=== PATIENT | male | born 1975 ===

== ENCOUNTER 2025-01-15 11:23 | Inpatient (IN) | payer OTHER ==
[~2025-01-15] VITALS: Ht 175.3 cm; Wt 81.1 kg
[2025-01-15 13:17] VITALS: BP 137/83
[2025-01-15] MEDS ORDERED: LITH300C PO (13:42)
[2025-01-15] MEDS ORDERED: TRAZ50 PO (13:50)
[2025-01-15] MEDS ORDERED: Polyethylene Glycol 3350 17 gm PO PRN (14:30)
[2025-01-15] MEDS ORDERED: Ondansetron 4 MG SoluTab MM PRN (14:30)
[2025-01-15] MEDS ORDERED: Aluminum Hydroxide 320MG/5ML 473 ML PO PRN (14:35)
[2025-01-15] MEDS ORDERED: LITH300ER PO (15:43)
[2025-01-15 15:44] VITALS: BP 137/83
--- NOTE | 2025-01-15 16:16 | NUR ---
ADMISSION SUMMARY PT ARRIVED TO [facility] AT 1313 VIA [facility] COMING FROM [facility]. PT CHANGED TO GREEN SCRUBS, SKIN CHECK COMPLETED BY THIS RN AND ARTEM, NO SKIN ISSUES IDENTIFIED. PT IS VERY NERVOUS, ANXIOUS AND CONCERED ABOUT HIS STAY HERE. MANY QUESTION ABOUT HOW THINGS WORK, WHAT HAPPENS WHEN, CONCERNED ABOUT HIS ROOMMATE. PT JUST STARED AT HIS ROOMMATE WHO WAS SLEEPING AND PT WAS SHOCKED HE HAS A ROOMMATE. PT DESCRIBES HX OF BIPOLAR BEING DX WHEN HE WAS 18 YEARS. HE HAS HAD TWO INPATIENT ADMITS WHEN HE WAS YOUNGER WHILE LIVING IN [place]. HE STS HE HAS BEEN ON LITHIUM FOR MANY YEARS. HE TYPICALLY DOES WELL MANAGING HIS BIPOLAR. HE HAS JUST HAD WAY TO MUCH STRESS LATELY. HE IS OF 26 YEARS, WORKS AT [employer], HAS 3 DAUGTHERS AND 1 SON, HAS A BACHEL[employer] DEGREE IN SCIENCE. VERY CONCERNED ABOUT HOW HE CAN MANAGE HIS VRBO WITHOUT HIS PHONE AND NEEDS IT ALLOW RENTERS INTO THE HOME. WILL HAVE THIS ADDRESSED WITH THE MEMBER OF THE LEGISLATIVE ASSEMBLY TOMORROW. PT WAS ORIENTED TO UNIT AND HIS ROOM AND UNDERSTANDS Q15 MIN VISUAL SAFETY CHECKS
[2025-01-15 20:55] VITALS: BP 154/99
--- NOTE | 2025-01-16 04:00 | NUR ---
Patient is alert and oriented times four. He participates in activities of the milieu and is cooperative with staff and his peers. He does seem very anxious, and appeared to be somewhat subdued during our evening conversation. He did not endorse SI,HI or AVTH during assessment. Vistaril was given at 0240 for increasing anxiety and inability to go back to sleep. Will continue close monitoring every 15 minutes for safety and comfort
[2025-01-16 07:59] LABS: CHOL/HDL RATIO 2.3; Cholesterol 142 mg/dL (50-200); HDL Cholesterol 61 mg/dL (>39); LDL/HDL RATIO 1.0; Low Density Lipoprotein Chol 60 mg/dL (0-110); Triglycerides 104 mg/dL (30-160); Very Low Density Lipoprot Chol 20 mg/dL (6-32)
[2025-01-16 08:02] VITALS: BP 127/89
[2025-01-16] MEDS ORDERED: Multivitamins 1 Tab PO SCH (09:00)
--- NOTE | 2025-01-16 15:47 | NUR ---
SHIFT ASSESSMENT: PT DENIED SI, HI, AVH AND PHYSICAL PAIN. HE ENDORSED ANXIETY..."A LITTLE BIT." HE DESCRIBED HIS MOOD "A BIT MORE OPTIMISTIC NOW THAT I'VE TALKED TO THE DOCTOR." HIS GOALS FOR THIS ADMISSION," TO BE ABLE TO COME AND KNOW JERRY I'M SAFE AND BE CALMER." PT IS PRESENTLY IN HIS ROOM.
[2025-01-16 19:30] VITALS: BP 137/79
--- NOTE | 2025-01-17 03:46 | NUR ---
SHIFT SUMMARY Patient is alert and oriented times four. Pleasant and cooperative with his peers and the staff. Gave Patient safety plan and encouraged him to fill it out, and think about his coping skills. Spent time consructively listening to the patient discuss his anxiety and the effect it is having on his life. Patient seemed satisfied with the conversations, asked for hes evening medications with included trazodone and clozaril, and went to bed. Will continue to monitor every 15 minutes for comfort and safety. up until the time of this note, the patient has slept approximately 5.5 hours.
[2025-01-17 07:04] VITALS: BP 128/96
--- NOTE | 2025-01-17 11:14 | NUR ---
MID SHIFT SUMMARY WILL CONTINUE PT CARE UNTIL 1200. PT HAS BEEN UP SINCE THE TIME BKFT CAME. THIS MORNING HE DENIED SI/HI/AVH. HE IS FEELING MORE UPBEAT TODAY AND LOOKING FORWARD TO WORKING ON HIS D/C PLAN. HE HAS PARTICIPATED IN BOTH GROUPS SO FAR TODAY. DID NOT TAKE HIS AM MULTIVITAMIN, HE HAS BEEN RECEIVING Q15 MIN VISUAL SAFETY CHECKS.
--- NOTE | 2025-01-17 15:55 | NUR ---
SHIFT ASSESSMENT: PT DENIED SI, HI, AVH, ANXIETY AND PAIN. HE DESCRIBED HIS MOOD , "I'M ENCOURAGED...IT WAS A GOOD MEETING, HIS AFFECT WAS EUTHYMIC. PT IS PRESENTLY IN THE DAY ROOM WITH PEERS. HIS GOALS TODAY ARE, "TO DRINK MORE WATER AND GET A GOOD NIGHTS SLEEP. PT IS COOPERATIVE AND PLEASANT.
[2025-01-17 19:35] VITALS: BP 164/86
[2025-01-17 20:46] VITALS: BP 139/92
--- NOTE | 2025-01-18 04:06 | NUR ---
SHIFT SUMMARY PT PRESENT IN HALLWAY AT START OF SHIFT. HE REPORTS HIS MOOD "STRESSED". HE DISCUSSED BEING STRESSED DUE TO CONCERN REGARDING FINANCES AND HIS BUSINESS. HE ALSO STATES HE FEELS STRESSED WITH THE AMOUNT OF NOISES IN THE UNIT AND IS WORRIED THAT HIS MEDICATIONS AREN'T GOING TO WORK. HE WAS PLEASANT AND COOPERATIVE WITH CARE. HE DECLINED TO HAVE EVENING SNACK AND DID NOT ATTEND WRAP UP GROUP. HE STAYED IN HIS ROOM AND JOURNALED. HE WAS COMPLIANT WITH HIS MEDICATIONS AND WENT TO BED. HE PRESENTED TO THE NURSES STATION AT APPROXIMATELY 2300. REPORTED FEELING "VERY ANXIOUS AND RESTLESS. I CANNOT SLEEP." MASS SCORE OF 3. PT RECEIVED PRN VISTARIL AND MELATONIN AND RETURNED TO HIS ROOM. HE HAS REMAINED IN BED THROUGHOUT THE REST OF THE NIGHT. Q15 MINUTE CHECKS TO CONTINUE PER PT SAFETY.
[2025-01-18 09:16] VITALS: BP 134/83
--- NOTE | 2025-01-18 17:06 | NUR ---
SHIFT SUMMARY PT DENIES SI, HI, AVTH AT THIS TIME. PT GUARDED AT START OF SHIFT, BUT OPENED UP THROUGHOUT THE SHIFT. AND DAUGHTER IN TO VISIT PT AND DISCUSSED W/ PT ABOUT LITHIUM DOSING. PER PT/PT FAMILY DR BURK HAD DISCUSSED UPTITRATING LITHIUM DOSE WHICH PT REFUSED, BUT NOW STATES HE IS WILLING TO TAKE IT. DR BURK NOTIFIED. NO OTHER ACUTE EVENTS TODAY. PT ATTENDED GROUPS AND IS NOW WATCHING A MOVIE IN DAYROOM.
[2025-01-18 19:24] VITALS: BP 147/83
--- NOTE | 2025-01-19 05:12 | NUR ---
SHIFT SUMMARY. PT A/O X4. PLEASANT AND COOPERATIVE. DENIES SI, HI AND AVH. PT IS KNOWLEDGABLE ABOUT HIS LITHIUM MEDICATION. LET HIM KNOW THAT HE WILL HAVE A LAB DRAW IN THE MORNING AND THEN THE DOCTOR WILL INCREASE HIS DOSAGE. HE WENT TO BED AROUND 2200 AND GAUTAM SLEPT SINCE THEN. WILL CONTINUE TO MONITOR
--- NOTE | 2025-01-19 16:49 | NUR ---
SHIFT SUMMARY NO ACUTE EVENTS TODAY. PT DENIES SI, HI, AVTH. ENDORSED CONCERN ABOUT TAKING 1500MG LITHIUM, BUT EDUCATION GIVEN ON MEDICATION AND IMPORTANCE OF MONITORING. PT AT THIS TIME APPEARS OK W/ TAKING MEDICATION; ALSO ENCOURAGED BY FAMILY. PT HAD AND MOM VISITED TODAY. NO ACUTE EVENTS. PT ATTENDED GROUPS, ATE MEALS, AND IS CURRENTLY IN DAY ROOM WATCHING TV W/ PEERS.
[2025-01-19 19:55] VITALS: BP 145/92
--- NOTE | 2025-01-20 05:44 | NUR ---
SHIFT SUMMARY Pt is A&O, calm, cooperative, eye contact is appropriate. Pt s mood is okay, affect is congruent. Pt denies SI, HI, and hallucinations. Pt denies pain but endorses some GI discomfort RT constipation and took Miralax earlier in the day. Pt endorse anxiety and requested PRN hydroxyzine; MASS score 2. Pt was active on unit during the evening. Staff continues to monitor q15m for safety and wellness.
[2025-01-20 09:11] VITALS: BP 137/82
--- NOTE | 2025-01-20 16:53 | NUR ---
SHIFT SUMMARY PT DENIES SI, HI, AVTH. PT STATED HE "SLEPT WELL" LAST NIGHT. PT AFFECT IS MUCH BRIGHTER (E.G., SMILING, LAUGHING), AND APPEARS LESS ANXIOUS. PT STATED HE HAD A "GOOD" VISIT W/ FAMILY AND IS CURRENTLY IN GROUP ROOM WATCHING TV.
[2025-01-20 19:11] VITALS: BP 145/99
--- NOTE | 2025-01-21 06:24 | NUR ---
SHIFT SUMMARY Pt is A&O, calm, cooperative, eye contact is appropriate. Pt s mood is best, affect is euthymic, congruent to report. Pt denies SI, HI, and hallucinations. Pt stated that he had a BM today and that his GI issues have resolved. Pt stated that he slept well last night and has had the best day since he s been admitted. Pt requested PRN hydroxyzine for anxiety at 2106 for MASS score 2. Staff continues to monitor q15m for safety and wellness.
[2025-01-21 07:57] LABS: Lithium 1.36 mmol/L (0.60-1.20)
[2025-01-21 09:05] VITALS: BP 118/78
--- NOTE | 2025-01-21 17:06 | NUR ---
SHIFT SUMMARY DENIES SI, HI, AVTH. NO ACUTE EVENTS TODAY. PT STATED HE HAD ANOTHER "GOOD" NIGHT OF SLEEP. INTERACTING W/ PEERS, IN DAYROOM WATCHING TV W/ PEERS, AND INTERACTING W/ STAFF/PEERS. HAD VISIT W/ MOM/ TODAY. SMILING AND MAKING JOKES TODAY. STATED SHE NOTICED IMPROVEMENT, BUT THAT HE APPEARS TO STILL STRUGGLE TO GET HIS THOUGHTS OUT.
[2025-01-21 19:28] LABS: Lithium 0.71 mmol/L (0.60-1.20)
--- NOTE | 2025-01-21 19:59 | NUR ---
CALLED WITH LITHIUM LEVEL ON PT. LEVEL OF 1.36. ORDERS TO CHANGE LITHIUM TO 1200 MG FROM 1500 MG ORDERS CHANGED. WILL LET PT KNOW OF CHANGES. WILL CONTINUE TO MONITOR.
[2025-01-21 20:49] VITALS: BP 127/81
--- NOTE | 2025-01-22 05:52 | NUR ---
SHIFT SUMMARY Pt is A&O, calm, cooperative, eye contact is appropriate. Pt s mood is euthymic with congruent affect. Pt denies SI, HI, and hallucinations. No reported pain or other medical issues. Pt was active on the milieu during the evening and retired to his room after receiving HS medications. No PRNs requested. Staff continues to monitor q15m for safety and wellness.
[2025-01-22 09:15] VITALS: BP 126/80
--- NOTE | 2025-01-22 17:43 | NUR ---
SHIFT SUMMARY PT IS EUTHYMIC THIS SHIFT. HE DENIES ANY SI/HI/HAULLUCINATIONS. HE VERBALIZES HE IS LOOKING FORWARD TO HIS D/C TOMORROW AND HE HAS NOTIFIED HIS FOR TRANSPORTATION. PT ATTENDED GROUPS AND WAS ACTIVE IN THE MILIEU. HE HAD A VISIT IN THE AFTERNOON THAT APPEARED TO GO WELL. PT HAD NO ACUTE EVENTS TO REPORT. HE WAS COMPLIANT WITH ALL MEDICATIONS AND INTERACTED WELL WITH OTHERS.
[2025-01-22 20:52] VITALS: BP 129/84
--- NOTE | 2025-01-23 05:58 | NUR ---
SHIFT SUMMARY Pt is A&O, calm, cooperative, eye contact is appropriate. Pt s mood is I m feeling great, affect is euthymic, congruent to reported mood. Pt denies SI, HI, and hallucinations. No reported pain or other medical issues. Pt was active on the milieu during the evening and retired to his room after receiving HS medications. No PRNs requested. Staff continues to monitor q15m for safety and wellness.
--- NOTE | 2025-01-23 07:50 | NUR ---
IMPORTANT DISCHARGE INFORMATION PATIENT TO BE DISCHARGED TODAY. HIS SPOUSE "SAURAV" WILL BE COMMING TO GET HIM AROUND 1:30PM. HER PHONE NUMBER IS . ALL PARTIES VERBALIZE AN UNDERSTANDING OF TODAYS DISCHARGE. FOLLOW UP WITH YOUR PCP DR. OROZCO [facility] FOLLOW UP WITH [facility] "ACT TE[facility]" [facility]. PHARMACY: [address] FAX#
[2025-01-23 09:08] VITALS: BP 135/90
[2025-01-23] MEDS ORDERED: LITH300ER PO (09:36)
[2025-01-23] MEDS ORDERED: TRAZ150T57 PO (09:37)
[2025-01-23] MEDS ORDERED: HYDHCL25 PO (09:39)
--- NOTE | 2025-01-23 14:18 | NUR ---
DISCHARGE PT A/O X4; PLEASANT AND COOPERATIVE WITH CARE. HE DENIES SI, HI, AVTH. PT'S MEDICATIONS FAXED TO PHARMACY IN [place] PER HIS REQUEST. DISCUSSED DISCHARGE INSTRUCTIONS WITH PATIENT AND HE VERBALIZED UNDERSTANDING. PERSONAL ITEMS RETURNED AND PT WAS PICKED UP BY HIS . PT LEFT THE UNIT 1339.
== END 2025-01-23 13:39 | disposition home or self-care (01) | DRG 885 ==
LOC: BHU 11:23
PROVIDERS: ADMIT Psychiatry & Neurology Psychiatry
DX: F31.9 Bipolar disorder, unspecified (principal); R45.851 Suicidal ideations; Z79.899 Other long term (current) drug therapy; Z88.0 Allergy status to penicillin; Z88.8 Allergy status to other drugs, medicaments and biological substances
CPT/HCPCS: 36415; 80061; 80178; 83036; A9270